=== PATIENT | female | born 1960 | race Caucasian/White ===

== ENCOUNTER → 2017-12-13 12:32 | Outpatient (CLI) | payer OTHER, SELFPAY ==
[2017-12-13 13:19] LABS: Hematocrit 44.5 % (37-47); Hemoglobin 14.8 g/dl (12.0-15.0); Mean Corp Hgb Conc 33.3 g/gl (32-36); Mean Corpuscular Hgb 28.8 pg (27.0-32.0); Mean Corpuscular Volume 86.7 fL (81-99); Mean Platelet Vol. 9.8 fl (6.2-12.0); Platelet Count 409 K/mm3 (150-450); RBC Distribution Width CV 14.9 % (11.6-14.6); RBC Distribution Width SD 47.1 fl (35.1-43.9); Red Blood Count 5.13 M/mm3 (4.2-5.4); White Blood Count 9.6 K/mm3 (4.4-11.0)
[2017-12-13 13:20] LABS: Scan Indicated on CBC? Y/N NO
[2017-12-13 13:24] LABS: Hemoglobin A1c 5.6 % (4.2-6.3)
[2017-12-13 13:32] LABS: Amphetamine Urine VISTA NEGATIVE (<1000 ng/mL); Barbiturate Urine VISTA NEGATIVE (< 200 ng/mL); Benzodiazepine Urine VISTA POSITIVE (< 200 ng/mL); Cocaine Urine VISTA NEGATIVE (< 300 ng/mL); Ecstacy Urine VISTA POSITIVE (< 500 ng/mL); Methadone Urine VISTA NEGATIVE (< 300 ng/mL); PCP Urine VISTA NEGATIVE (< 25 ng/mL); THC Urine VISTA POSITIVE (< 50 ng/mL); Vista UDS pH Range 5
[2017-12-13 13:41] LABS: ALB/GLOB Ratio 0.9 RATIO (0.9-2.4); AST(SGOT) 16 U/L (15-37); Alanine Aminotransfer ALT/SGPT 16 U/L (13-56); Albumin, Serum 3.7 g/dL (3.2-5.0); Alkaline Phosphatase 103 U/L (45-117); Anion Gap 8 (5-15); BUN 9 mg/dL (7-18); BUN/Creat Ratio 7.6 RATIO (10-20); Chloride 101 mmol/L (98-107); Creatinine, Serum 1.19 mg/dL (0.55-1.02); EST Glomerular Filtration Rate 49 mL/min (>60); Est Glom Filt Rate - Afr Amer 60 mL/min (>60); Globulin 4.2 g/dL (2.2-4.2); Glucose 92 mg/dL (74-106); Potassium 4.5 mmol/L (3.5-5.1); Protein, Total 7.9 g/dL (6.4-8.2); Sodium Level 137 mmol/L (136-145); Thyroid Stim Hormone (TSH) 1.47 uIU/mL (0.358-3.74)
[2017-12-14 10:29] LABS: Vitamin B12 367 pg/mL (211-911); Vitamin D,25 Hydroxy 15.8 ng/mL (19.95-100.01)
[2017-12-20 09:25] LABS: Amphetamine Ur Confirm Negative (Cutoff=500)
== END ==
PROVIDERS: Family Provider Family Medicine; PCP Family Medicine; Visit Provider Psychiatry & Neurology Psychiatry
DX: F19.10 Other psychoactive substance abuse, uncomplicated (principal); E55.9 Vitamin D deficiency, unspecified; Z79.899 Other long term (current) drug therapy
CPT/HCPCS: 36415; 80053; 80307; 80346; 82306; 82607; 83036; 84443; 85027

== ENCOUNTER 2019-03-24 08:00 | Outpatient (RCR) | payer MEDICARE, OTHER, SELFPAY ==
--- NOTE | 2019-01-07 11:24 | HP.PTEVAL_ITS ---
Patient's Visit Information MK KIRBY is a 58 year old F referred to Physical Therapy by Adam Serrano MD with a diagnosis of Repeated falls and imbalance. Date of Evaluation: 01/07/19 Physical Therapist: Genaro High, TEENAT, OCS, CSCS - Visit Plan Frequency: 2x /Week Duration: 4-6 Weeks Plan: 2x/week x 6-8 as needed for. habituation progression, adaptation if helpful. balance test on neurocom and treatment based on results. - Subjective Findings: Several falls and feels unsteady for long time...as long as I can remember. Worse as I get older. Never had good balance. Fell last month in dining room tripping on own feet. Always feel a little dizzy described as lightheaded and been there long time. Worse with head movements. Had PT in [place] and did some eye exercises and balance. Not good at doing homework. Didn't get much better and did it for 7 weeks about 15 visits. No neuropathy. Normal MRI adn VNG. Sleep is OK on meds for sleeping. Not employed, retired disability due to sickness from meds maybe. Spends day going to son's and playing with grandchildren. Fell down there steps one summer and so has to be very careful. No steps at her house. Has beasement but not down there often, has railing. Basic ADLs are getting done but hard time tying shoes, has to start over often. Doesn't want to use cane or walker. - Objective C/S aROM WNL and without pain. UE aROM WFL and symmetrical. Sensation UE WNL to gross light touch. strength UE 4-/5 without myotomal abnormalities. reflexes bi and tri: 2/3. - B hallpike nikko but dizzy sitting up 8/10 B for 30 seconds. - roll test. Oculomotor: no nystagmus with gaze or head shake. pursuit and saccades are OK. convergence is good. - skew eye deviation. VOR is dizzy 7/10 horiz 30 sec for 2 minutes. - head thrust. SVA is 20/25 adn DVA is 20/40 for a two line difference which is not abnormal. MSQ positions to knee none, from knee B 8/10 two minutes. head nods: 8/10 30 seconds. head turns 8/10 for 30 seconds. 180 degree turn R:OK and L : OK Unsteady but not dizzy. Walked out feeling baseline 4/10 dizzy as when she walked in. - Balance Scores Functional Gait Assessment Score: 23 % Disability: 23.3400 CATSIB Score (Max score 120 seconds): 46 - Goals Goal 1:: Feel 50% better overall dizzyness and activity Goal Time Frame: 6-8 Weeks Goal 2:: FGA to help reduce fall risk. Goal Time Frame: 6-8 Weeks Goal 3:: Patient clean house without worrying about balance or dizzyness. Goal Time Frame: 6-8 Weeks - Rehabilitation Potential Physical Therapy Diagnosis: Imbalance and dizzy. Rehabilitation Potential: Questionable - Anticipated Interventions Patient/Client Instruction: Educate patient on: Condition, Plan of Care For the Purpose of:: To increase tolerance to activity/condition/position Therapeutic Exercise to Include: Balance training Comment: vestibular ex progression For the Purpose of:: To improve muscle performance and motor function, To improve ability of physical actions for home/community/work/leisure Thank you for the opportunity to evaluate your patient. For Medicare and Medicare HMO plans, please review the plan of care and approve it. It will need to be FAXED BACK to us at [phone] for Medicare purposes. For Medicare only, by signing this I certify the plan of care. Please let me know if there are questions or concerns regarding this plan of care. Physician Signature: Date:
--- NOTE | 2019-01-07 11:25 | HP.PTEVAL_ITS ---
Patient's Visit Information MK KIRBY is a 58 year old F referred to Physical Therapy by Adam Serrano MD with a diagnosis of Repeated falls and imbalance. Date of Evaluation: 01/07/19 Physical Therapist: Genaro High, DPT, OCS, CSCS - Visit Plan Frequency: 2x /Week Duration: 4-6 Weeks Plan: 2x/week x 6-8 as needed for. habituation progression, adaptation if helpful. balance test on neurocom and treatment based on results. - Subjective Findings: Several falls and feels unsteady for long time...as long as I can remember. Worse as I get older. Never had good balance. Fell last month in dining room tripping on own feet. Always feel a little dizzy described as lightheaded and been there long time. Worse with head movements. Had PT in [place] and did some eye exercises and balance. Not good at doing homework. Didn't get much better and did it for 7 weeks about 15 visits. No neuropathy. Normal MRI adn VNG. Sleep is OK on meds for sleeping. Not employed, retired disability due to sickness from meds maybe. Spends day going to son's and playing with grandchildren. Fell down there steps one summer and so has to be very careful. No steps at her house. Has beasement but not down there often, has railing. Basic ADLs are getting done but hard time tying shoes, has to start over often. Doesn't want to use cane or walker. - Objective Pt ambulates I on firm flat surface into PT, trasnfers I. Steps reciprocal without rail today. Head movements up and down and turning quick seem to give her balacne problems. C/S aROM WNL and without pain. UE aROM WFL and symm etrical. Sensation UE WNL to gross light touch. strength UE 4-/5 without myotomal abnormalities. reflexes bi and tri: 2/3. - B hallpike nikko but dizzy sitting up 8/10 B for 30 seconds. - roll test. Oculomotor: no nystagmus with gaze or head shake. pursuit and saccades are OK. convergence is good. - skew eye deviation. VOR is dizzy 7/10 horiz 30 sec for 2 minutes. - head thrust. SVA is 20/25 adn DVA is 20/40 for a two line difference which is not abnormal. MSQ positions to knee none, from knee B 8/10 two minutes. head nods: 8/10 30 seconds. head turns 8/10 for 30 seconds. 180 degree turn R:OK and L : OK Unsteady but not dizzy. Walked out feeling baseline 4/10 dizzy as when she walked in. - Balance Scores Functional Gait Assessment Score: 23 % Disability: 23.3400 CATSIB Score (Max score 120 seconds): 46 - Goals Goal 1:: Feel 50% better overall dizzyness and activity Goal Time Frame: 6-8 Weeks Goal 2:: FGA to help reduce fall risk. Goal Time Frame: 6-8 Weeks Goal 3:: Patient clean house without worrying about balance or dizzyness. Goal Time Frame: 6-8 Weeks - Rehabilitation Potential Physical Therapy Diagnosis: Imbalance and dizzy. Rehabilitation Potential: Questionable - Anticipated Interventions Patient/Client Instruction: Educate patient on: Condition, Plan of Care For the Purpose of:: To increase tolerance to activity/condition/position Therapeutic Exercise to Include: Balance training Comment: vestibular ex progression For the Purpose of:: To improve muscle performance and motor function, To improve ability of physical actions for home/community/work/leisure Thank you for the opportunity to evaluate your patient. For Medicare and Medicare HMO plans, please review the plan of care and approve it. It will need to be FAXED BACK to us at [phone] for Medicare purposes. For Medicare only, by signing this I certify the plan of care. Please let me know if there are questions or concerns regarding this plan of care. Physician Signature: Date:
--- NOTE | 2019-01-13 10:40 | HP.PTCOM_ITS ---
PT Communication Note 01/13/[address] Adam Serrano MD , Thank you for the referral of Renee to [facility] for balance assessment. She has a very unusual presentation. I have enclosed a copy of her balance test for your review. In summation, the results are below: SOT: visual and vestibular deficits significant MCT:slow and unable to correct in all medium and large perturbations. LOS:Limitations in forward excursion velocity and multi directional reaction time delays. Overall a very poor showing on this test not explained by any current diagnosis and neurologi condition is most likely cause. Based on these results, I plan to see her per your prescription for balance and habituation exercises to her tolerance. If there are questions regarding her therapy, please feel free to call me. Prognosis for improvement is questionable at best based on this testing. Sincerely, TEENA HumphreyT, OCS, CSCS Contact Information
--- NOTE | 2019-02-11 10:52 | HP.PTREVAL ---
Adam Serrano MD, It has been my pleasure to treat MK KIRBY over the last 10 visits for Repeated falls and imbalance. Please see the progress note below for an update on the physical therapy plan of care! Subjective: Feels better on balance exercises. No falls outside of here which is a record. Is more careful with walking. No falls in a couple months. Feels better balanced. Saw Dr office last week and nothing new happening. Still dizzy alot described as lightheadedness increasing with exercises, nothing causes that outside of PT. HEP of VOR and up from knees and makes her sick for a few minutes and not improving as she does them over the last couple weeks. Objective/Function: FGA is +2, pt feels better but still gets many awkward LOB waving arms especially if i make her turn fast. Otherwise looking better with gait. VOR and habituation exercises do not seem to be helping as I would expect. Balance is slightly improved. Plan Plan: 2x/week for 3 weeks to work toward safe adn I home balance program with pics and list as safety allows. ( i gave her 180 degree turns today) Goals Goal 1:: Feel 50% better overall dizzyness and activity Goal Time Frame: 6-8 Weeks Goal Progress: Progressing Goal 2:: FGA to help reduce fall risk. Goal Time Frame: 6-8 Weeks Goal 3:: Patient clean house without worrying about balance or dizzyness. Goal Time Frame: 6-8 Weeks Goal Progress: Goal Met Goal 4:: 180 degree turn without unsteadyness or inappropriate UE motions. Goal Time Frame: 2-4 Weeks Goal Progress: NEW GOAL Goal 5:: I approp balance related HEP safe and confident at home by counter. Goal Time Frame: 2-4 Weeks Goal Progress: NEW GOAL Anticipated Interventions Patient/Client Instruction: Educate patient on: Condition, Plan of Care For the Purpose of:: To increase tolerance to activity/condition/position Therapeutic Exercise to Include: Balance training Comment: vestibular ex progression For the Purpose of:: To improve muscle performance and motor function, To improve ability of physical actions for home/community/work/leisure Please do not hesitate to contact me at [phone] by phone or if you have questions or concerns regarding this new plan of care! Sincerely, Genaro High, DPT, OCS, CSCS
--- NOTE | 2019-04-07 08:13 | HP.PTDCSUM ---
HP - PT D/C Summary It has been my pleasure to treat MK KIRBY under orders from Adam Serrano MD, for the diagnosis of Repeated falls and imbalance for a total of 19 visit(s). Discharge Date: 04/07/19 Please see the following information for a summary of their discharge status. - Subjective Subjective: Much improved. Not falling backwards like she used to. Doing exercises at home(Was in [place] for the last week). No real falls lately. Balance feels pretty good. - Overall Improvement % Improvement: 95 - Objective Objective/Function: Much improved LEFS. FGA +7 overall. Much improved with mobility bending and turning without LOB. Much more confidence. - Goals Goal 1:: Feel 50% better overall dizzyness and activity Goal Progress: Goal Met Goal 2:: FGA to help reduce fall risk. Goal Progress: Goal Met Goal 3:: Patient clean house without worrying about balance or dizzyness. Goal Progress: Goal Met Goal 4:: 180 degree turn without unsteadyness or inappropriate UE motions. Goal Progress: Goal Met Goal 5:: I approp balance related HEP safe and confident at home by counter. Goal Progress: Goal Met - Plan Plan: D/C - D/C Information Discharge Comments: Doing well with balance and will continue via HEP. If there are questions or concerns regarding this patient's physical therapy, please feel free to call me at [phone]. Thank you for the referral of this patient. Sincerely, Genaro High, DPT, OCS, CSCS
== END 2019-03-24 19:00 | disposition home or self-care (01) ==
LOC: PT 08:00
PROVIDERS: Family Provider Family Medicine; PCP Family Medicine; Referring Provider Psychiatry & Neurology Neurology; Visit Provider Psychiatry & Neurology Neurology
DX: R29.6 Repeated falls (principal); R26.89 Other abnormalities of gait and mobility
CPT/HCPCS: 97110; 97163; 97530; 97750

== ENCOUNTER → 2023-09-26 | Outpatient (CLI) | payer MEDICARE, SELFPAY ==
[2023-09-26 15:36] LABS: Absolute Lymphocyte Count 3.06 X10^3/uL (0.83-4.51); Absolute Neutrophil Count 4.7 X10^3/uL (2.0-7.7); Basophil# 0.05 X10^3/uL; Basophil% 0.6 % (0-1); Eosinophil# 0.06 X10^3/uL; Eosinophils% 0.7 % (0-5); Hematocrit 38.4 % (37-47); Hemoglobin 12.3 g/dL (12.0-15.0); Lymphocyte # 3.06 X10^3/ul (0.83-4.51); Lymphocyte % 36.1 % (19-41); Mean Corpuscular Hgb 31.9 pg (27.0-32.0); Mean Corpuscular Volume 99.7 fL (81-99); Mean Platelet Vol. 10.3 fl (6.2-12.0); Monocyte# 0.57 X10^3/uL; Monocyte% 6.7 % (0-10); NRBC Flagged by Analyzer 0 % (0-5); Neutrophil # 4.69 X10^3/uL (2.7-7.7); Neutrophil % 55.3 % (47-70); Platelet Count 298 K/mm3 (150-450); RBC Distribution Width CV 14.7 % (11.6-14.6); RBC Distribution Width SD 53.3 fl (35.1-43.9); Red Blood Count 3.85 M/mm3 (4.2-5.4); White Blood Count 8.5 K/mm3 (4.4-11.0)
[2023-09-26 16:16] LABS: Anion Gap 7 (5-15); BUN 10 mg/dL (7-18); BUN/Creat Ratio 9.5 RATIO (10-20); Calcium,Total 8.7 mg/dL (8.5-10.1); Chloride 111 mmol/L (98-107); Creatinine, Serum 1.05 mg/dL (0.55-1.02); EST Glomerular Filtration Rate 56 mL/min (>60); Est Glom Filt Rate - Afr Amer 68 mL/min (>60); Glucose 97 mg/dL (74-106); Potassium 3.7 mmol/L (3.5-5.1); Sodium Level 141 mmol/L (136-145)
== END | disposition home or self-care (01) ==
LOC: PSN 15:12
PROVIDERS: Referring Provider Physician Assistant; Visit Provider Physician Assistant
DX: Z01.818 Encounter for other preprocedural examination (principal)
CPT/HCPCS: 36415; 80048; 85025; 93005

== ENCOUNTER 2023-09-27 11:38 | Day surgery (SDC) | payer MEDICARE, SELFPAY ==
[2023-09-27] VITALS (7 sets, daily range): BP systolic 112–139; BP diastolic 61–78; PULSE 61–63; RESP 16; TEMP 36.3–36.6; O2SAT 92–99
[2023-09-27] MEDS: Lactated Ringers 1,000 ML 15 ML IV (12:35)
--- NOTE | 2023-09-27 13:05 | RAD_ITS ---
STUDY: X-RAY - LEFT WRIST REASON FOR EXAM: Female, 63 years old. L DISTAL RADIUS ORIF TECHNIQUE: 3 C-arm view(s) of the wrist were obtained. 3.1 seconds fluoroscopy time COMPARISON: None. FINDINGS: These images show grossly satisfactory positioning of a volar compression plate across distal radial fracture which is in near anatomic alignment and position. Correlate with procedure note. Electronically Signed: Byron Morejon MD at 19:53 EST , RAD/Wrist min 3 Views IMPRESSION: undefined
[2023-09-27] MEDS: Cefazolin 2 GM in 0.9% Normal Saline (100mL Bag) 100 ML IV (15:01)
--- NOTE | 2023-09-27 15:51 | OP.PCM_ITS ---
Report of Operation Date of Procedure: 09/27/23 Description of Surgical Findings:: Preoperative diagnosis: Left extra-articular distal radius fracture Postoperative diagnosis: Left extra-articular distal radius fracture Procedure: Open reduction internal fixation left extra-articular distal radius fracture Surgeon: Dixon Bartlett DO Sand Drier: Jordyn Wright PA-C Anesthesia: General endotracheal with axillary block Presidential Support Specialist: Denny Marinelli CRNA Complications: None Drains: None Estimated blood loss: 25 cc Urinary output: None recorded IV fluids: Per anesthesia record Specimens: None Surgical implants: Arthrex volar titanium distal radius locking plate, narrow 3- hole Surgical indications: This is a 63-year-old female who sustained a fall on outstretched left hand approximately 2 weeks ago. She tripped and fell over a suitcase as she was preparing for a trip. Patient had delayed follow-up and followed up in our office yesterday. X-rays were reviewed and demonstrated significant dorsal angulation of the distal radius fracture. I recommended surgical invention in the form of left distal radius open reduction internal fixation. The risks, benefits, terms procedure reviewed with the patient at length. Risk included but were not limited to bleeding, flexion, loss of life o r limb, need for additional surgery, persistent pain, nonhealing bone or wounds, neurovascular injury, tendon injury, need for hardware removal, risk of anesthesia. She expressed understanding of these risks. She agreed to proceed with surgery. Informed consent was obtained. Description of procedure: Patient was seen in preoperative holding area. He was identified by name, medical record number, date of . The operative extremity was marked with a surgical marker. We confirmed informed consent with the patient and all questions were answered to his satisfaction. An axillary block was administered by anesthesia staff prior to the procedure. At time of her procedure, patient was brought to the operative suite and positioned supine on a standard operating table. All bony prominences were well-padded. General anesthesia was administered and LMA was placed. After adequate anesthesia, a well-padded pneumatic tourniquet was applied to the upper arm of the operative extremity. We then spun the bed 90 degrees. We prepped and draped the operative extremity in a normal, sterile orthopedic fashion. We then performed a timeout with all parties in attendance in agreement the side, site, and operation be performed. No concerns were voiced and we elected to proceed. 2 g Ancef was administered for antibiotic prophylaxis prior to the incision by anesthesia staff. I first exsanguinated the operative extremity with an Esmarch bandage. Tourniquet was inflated to 250 mmHg which remained up for 22 minutes. Esmarch was removed. I planned a standard FCR approach over the flexor carpi radialis tendon along the volar wrist. Skin was sharply incised with a 15 blade scalpel down to the level of the tendon sheath. The FCR tendon sheath was identified and split longitudinally in line with the incision. I then retracted the FCR tendon ulnarly, split the floor of the tendon sheath in line with the incision. The flexor pollicis longus muscle belly was then encountered and retracted ulnarly. The pronator quadratus was then encountered. A self-retaining retractor was placed deep. Performed an L-shaped tenotomy of the pronator quadratus and subperiosteally elevated it ulnarly. This exposed the fracture site. Significant fracture healing was noted and fracture was mobilized with a [place] elevator. I used a small Hohmann retractor to reduce the fracture to near- anatomic alignment. Orthogonal fluoroscopy confirmed appropriate alignment. A percutaneous K wire was placed through the radial styloid to hold the reduction. I then selected a narrow 3-hole distal radius locking plate. This was held in place with K wires at appropriate position. I filled the distal cluster in the plate with unicortical locking screws. Plate was compressed to bone in the sh aft with a cortical screw in the oblong hole. An additional cortical screws were placed in the most proximal hole of the plate. A unicortical locking screw was placed in the distal shaft hole. Fluoroscopy was utilized to place 2 unicortical screws in the radial styloid. Fracture was stable. Anatomic reduction was achieved. Tourniquet was deflated. Hemostasis was excellent. There was excellent return of perfusion to the fingers. Wound was copiously irrigated with normal saline solution. Dermis was reapproximated buried 2-0 Vicryl suture. Skin was finally reapproximated with a running subcuticular 4-0 Monocryl and skin glue. Patient was placed in a well-padded volar fiberglass short arm splint. Patient tolerated procedure well without apparent complication. She was safely explained the operative suite and awoken from anesthesia. She was transferred to her gurney and subsequently to PACU in stable condition. Need for skilled customer marketing assistant: Jordyn Wright PA-C was critical to the outcome of the case. During the course of the procedure the physician customer marketing assistant played a vital role. Her intimate knowledge of my steps in the procedure aided in safe and expedient completion of the procedure. The PA played a vital role in positioning particularly in obtaining the appropriate positioning. The PA was also vital in the retraction of soft tissues during the exposure and protecting vital structures. The PA was also vital and obtaining fracture reduction and assisting with hardware placement. She also played a vital role in closure and splint application with my direct supervision. Post Operative Plan: Weightbearing: Nonweightbearing operative extremity Antibiotics: 2 g Ancef x 1 dose preoperatively DVT Prophylaxis: Aspirin 81 mg twice daily starting postoperative day number 1 x 2 weeks Murphy: None Dressing: Maintain splint, keep it clean dry and intact until follow-up. Plan to transition to wrist brace and initiate early range of motion in 2 weeks with physical therapy. X-Rays: 2 weeks postop in the office Pain Medication: Oxycodone provided as an outpatient, Tylenol and ibuprofen encouraged. Follow-up: 2 weeks post-operatively
== END 2023-09-27 17:26 | disposition home or self-care (01) ==
LOC: SDC 11:42 → AC 11:47
PROVIDERS: Referring Provider Student in an Organized Health Care Education/Training Program; Visit Provider Student in an Organized Health Care Education/Training Program
PROC: (CPT 25607; principal; 2023-09-27 13:45)
DX: S52.592A Other fractures of lower end of left radius, initial encounter for closed fracture (principal); F17.210 Nicotine dependence, cigarettes, uncomplicated; W01.0XXA Fall on same level from slipping, tripping and stumbling without subsequent striking against object, initial encounter; Y92.009 Unspecified place in unspecified non-institutional (private) residence as the place of occurrence of the external cause
CPT/HCPCS: 25607; 01830; 64417; 73110; 76000; C1713; C1776; J7120; J2405